=== PATIENT | male | born 1955 | race Hispanic/Latino ===

== ENCOUNTER 2017-03-11 10:30 | Emergency (ER) | payer OTHER, SELFPAY ==
[2017-03-11] MEDS ORDERED: HYDROcodone/Acetaminophen 5/325 mg Tablet ONE ×2 (13:34→13:41)
[2017-03-11] MEDS ORDERED: Ketorolac Tromethamine 60 MG/2 ML VIAL ONE (13:34)
== END 2017-03-11 13:56 | disposition home or self-care (01) ==
LOC: ERS 10:30
DX: M10.9 Gout, unspecified (principal)
CPT/HCPCS: 96372; J1885

== ENCOUNTER 2018-01-19 10:04 | Outpatient (CLI) | payer OTHER ==
--- NOTE | 2018-01-19 12:19 | RAD ---
RIGHT ANKLE TWO VIEWS: HISTORY: Right ankle pain. FINDINGS: No acute fracture, dislocation, or bony destruction is seen. There are degenerative changes in the m [place]. POS: [facility]
--- NOTE | 2018-01-19 12:38 | RAD ---
TWO VIEWS RIGHT KNEE: HISTORY: Pain. FINDINGS: AP and lateral views of the right knee obtained. Two views right knee demonstrate no evidence of right knee fractures, subluxations, or bony lesions. IMPRESSION: Normal 2 views right knee. POS: [facility]
--- NOTE | 2018-01-19 14:02 | RAD ---
LEFT KNEE 2 VIEWS: HISTORY: Left knee pain. FINDINGS/IMPRESSION: Degenerative changes are present. No fracture, dislocation, or bony destruction is seen. POS: [facility]
== END 2018-01-19 10:05 | disposition home or self-care (01) ==
LOC: BICRAD 10:04
PROVIDERS: ATTEND Internal Medicine
DX: M25.561 Pain in right knee (principal); M25.562 Pain in left knee; M25.571 Pain in right ankle and joints of right foot; M17.12 Unilateral primary osteoarthritis, left knee; M19.071 Primary osteoarthritis, right ankle and foot